=== PATIENT | female | born 1955 | race Caucasian/White ===

== ENCOUNTER 2021-05-04 10:10 | Day surgery (SDC) | payer OTHER, SELFPAY ==
[~2021-05-04] VITALS: Ht 157.5 cm; Wt 105.2 kg
[2021-05-04] MEDS ORDERED: diphenhydrAMINE 50 MG/ML VIAL ONE (12:53)
[2021-05-04] MEDS ORDERED: MIDAZOLAM 5 MG/5 ML VIAL ONE (12:53)
[2021-05-04] MEDS ORDERED: LIDOCAINE 2% 100 MG/5 ML UJET TP ONE ×2 (12:53→14:20)
[2021-05-04] MEDS ORDERED: fentaNYL citrate 0.05 MG/ML VIAL ONE (12:54)
[2021-05-04] MEDS ORDERED: MIDAZOLAM 2 MG/2 ML VIAL IVP ONE (14:20)
[2021-05-04] MEDS ORDERED: fentaNYL citrate 0.05 MG/ML VIAL IVP ONE (14:20)
== END 2021-05-04 13:40 | disposition home or self-care (01) ==
LOC: MOR 10:10 → MMU 10:11 → MOR 13:40
PROVIDERS: ATTEND Internal Medicine Gastroenterology
DX: K62.5 Hemorrhage of anus and rectum (principal); K59.00 Constipation, unspecified; Z86.010 Personal history of colon polyps; K64.8 Other hemorrhoids; Z79.899 Other long term (current) drug therapy; Z20.822 Contact with and (suspected) exposure to COVID-19
CPT/HCPCS: 45378; 87426; J2250; J3010; J1200